=== PATIENT | female | born 1965 ===

== ENCOUNTER 2020-06-30 18:58 | Emergency (ER) | payer OTHER ==
[~2020-06-30] VITALS: Ht 152.4 cm; Wt 72.1 kg
== END 2020-06-30 22:09 | disposition home or self-care (01) ==
LOC: ER 18:58 → EDBD 19:48 → ER 19:48
DX: B34.9 Viral infection, unspecified (principal); Z03.818 Encounter for observation for suspected exposure to other biological agents ruled out